=== PATIENT | male | born 1995 | race Asian ===

== ENCOUNTER 2021-08-12 11:30 | Emergency (ER) | payer MEDICAID ==
[~2021-08-12] VITALS: Ht 182.9 cm; Wt 118.0 kg
[2021-08-12 11:40] VITALS: BP 117/76
[2021-08-12] MEDS ORDERED: HYDR-2759 PO (12:04)
--- NOTE | 2021-08-12 12:06 | PHYS DOC ---
General Adult EDM: Chief Complaint: FOOT INJURY PAIN HPI: HPI: 25-year-old male presents with mass of the left lateral foot. He states that he has had a bump there as long as he can remember. Over the last few days, it has gotten significantly bigger and it is now quite painful. He describes the pain as a [id number] feeling and sometimes a pressure. He has no other complaints at this time. Review of Systems: Review of Systems: Constitutional: Denies fever or chills Eyes: Denies change in visual acuity HENT: Denies nasal congestion or sore throat Respiratory: Denies cough or shortness of breath Cardiovascular: Denies chest pain or edema GI: Denies abdominal pain, nausea, vomiting, bloody stools or diarrhea : Denies dysuria Musculoskeletal: Denies back pain or joint pain Integument: Mass left lateral foot Neurologic: Denies headache, focal weakness or sensory changes Endocrine: Denies polyuria or polydipsia Lymphatic: Denies swollen glands Psychiatric: Denies depression or anxiety Physical Exam: PE: Constitutional: Well developed, well nourished, no acute distress, non-toxic appearance. [] HENT: Normocephalic, atraumatic, bilateral external ears normal, oropharynx moist, no oral exudates, nose normal. [] Eyes: PERRLA, EOMI, conjunctiva normal, no discharge. [] Neck: Normal range of motion, no tenderness, supple, no stridor. [] Cardiovascular:Heart rate regular rhythm, no murmur [] Lungs & Thorax: Bilateral breath sounds clear to auscultation [] Abdomen: Bowel sounds normal, soft, no tenderness, no masses, no pulsatile masses. [] Skin: 3 cm firm but mobile mass of the left lateral foot consistent with cyst. No surrounding erythema or warmth. [] Back: No tenderness, no CVA tenderness. [] Extremities: No tenderness, no cyanosis, no clubbing, ROM intact, no edema. [] Neurologic: Alert and oriented X 3, normal motor function, normal sensory function, no focal deficits noted. [] Psychologic: Affect normal, judgement normal, mood normal. [] EKG: EKG: [] Radiology/Procedures: Radiology/Procedures: [] Heart Score: C/O Chest Pain: N/A Risk Factors: Risk Factors: DM, Current or recent (<one month) smoker, HTN, HLP, family history of CAD, obesity. Risk Scores: Score 0 - 3: 2.5% MACE over next 6 weeks - Discharge Home Score 4 - 6: 20.3% MACE over next 6 weeks - Admit for Clinical Observation Score 7 - 10: 72.7% MACE over next 6 weeks - Early Invasive Strategies Course & Med Decision Making: Course & Med Decision Making Pertinent Labs and Imaging studies reviewed. (See chart for details) I performed a bedside ultrasound on the patient's mass. There was no Doppler flow. It does appear to be a cyst. I have recommended that the patient see p odiatry or general surgery and have this excised. He states verbal understanding. I have given a referral for podiatry. I will also give him a short course of Brilliant for his pain especially at night. He is stable for discharge at this time. [] Dragon Disclaimer: Dragon Disclaimer: This electronic medical record was generated, in whole or in part, using a voice recognition dictation system. Departure Departure: Impression: Primary Impression: Ganglion cyst of left foot Disposition: HOME / SELF CARE / HOMELESS Condition: STABLE Referrals: LEXY JIMENEZ (PCP) Patient Instructions: Ganglion Cyst Additional Instructions: You can call Dr. Barnett, preassembler and inspector for an appointment to remove the cyst. His phone number is [phone]. Scripts Hydrocodone/Acetaminophen (Hydrocodone-Acetamin 5-325 mg) 1 Each Tablet 1 EACH PO Q4-6HRS PRN for PAIN, #10 TAB Prov: ARSH HANDY DO 08/12/21 ARSH HANDY DO Aug 12, 2021 12:05
== END 2021-08-12 12:10 | disposition home or self-care (01) ==
LOC: ER 11:30
DX: M67.472 Ganglion, left ankle and foot (principal)
CPT/HCPCS: 99283